=== PATIENT | female | born 1970 | race Two or more races ===

== ENCOUNTER 2024-11-12 11:18 | Emergency (ER) | payer OTHER ==
[~2024-11-12] VITALS: Ht 154.9 cm; Wt 90.0 kg
--- NOTE | 2024-11-12 11:31 | ECG ---
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
--- NOTE | 2024-11-12 11:44 | ED.PDOC ---
HPI Comments 54 y/o F, with no prior cardiac history presents to the ED for CC of chest pain. 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 Patient denies shortness of breath, cough, sore-throat, dizziness, or headache. No other symptoms or modifying factors present at this time. 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 Hx Family History Family History: Unknown Social History Smoker: Non-Smoker Alcohol: Denies ETOH Use Drugs: Denies Drug Use Lives In: Home Constitutional: denies: chills, diaphoresis, fatigue, fever, malaise, sweats, weakness, others EENTM: denies: blurred vision, double vision, ear bleeding, ear discharge, ear drainage, ear pain, ear ringing, eye pain, eye redness, hearing loss, mouth pain, mouth swelling, nasal discharge, nose bleeding, nose congestion, nose pain, photophobia, tearing, throat pain, throat swelling, voice changes, others Respiratory: denies: cough, hemoptysis, orthopnea, SOB at rest, shortness of breath, SOB with excertion, stridor, wheezing, others Cardiovascular: reports: chest pain; denies: dizzy spells, diaphoresis, Dyspnea on exertion, edema, irregular heart beat, left arm pain, lightheadedness, palpitations, PND, syncope, others Gastrointestinal: denies: abdomen distended, abdominal pain, blood streaked bowels, constipated, diarrhea, dysphagia, difficulty swallowing, hematemesis, melena, nausea, poor appetite, poor fluid intake, rectal bleeding, rectal pain, vomiting, others Genitourinary: denies: abnormal vagina bleeding, burning, dyspareunia, dysuria, flank pain, frequency, hematuria, incontinence, pain, , vagina discharge, urgency, others Neurological: denies: dizziness, fainting, headache, left sided numbness, left sided weakness, numbness, paresthesia, pre-existing deficit, right sided nu mbness, right sided weakness, seizure, speech problems, tingling, tremors, weakness, others Musculoskeletal: denies: back pain, gout, joint pain, joint swelling, muscle pain, muscle stiffness, neck pain, others Integumetry: denies: bruises, change in color, change in hair/nails, dryness, laceration, lesions, lumps, rash, wounds, others Allergic/Immunocompromised: denies: Difficulty Healing, Frequent Infections, Hives, Itching, others Hematologic/Lymphatic: denies: anemia, blood clots, easy bleeding, easy bruising, swollen glands, others Endocrine: denies: excessive hunger, excessive sweating, excessive thirst, excessive urination, flushing, intolerance to cold, intolerance to heat, unexplained weight gain, unexplained weight loss, others Psychiatric: denies: anxiety, bipolar disorder, depression, hopeless, panic disorder, schizophrenia, sleepless, suicidal, others All Other Systems: Reviewed and Negative Physical Exam General Appearance: Moderate Distress HEENT: Normal ENT Inspection, Pharynx Normal, TMs Normal Neck: Full Range of Motion, Non-Tender, Normal, Normal Inspection Respiratory: Chest Non-Tender, Lungs Clear, No Accessory Muscle Use, No Respiratory Distress, Normal Breath Sounds Cardiovascular: No Edema, No JVD, No Murmur, No Gallop, Normal Peripheral Pulses, Regular Rate/Rhythm Breast Exam: Deferred Gastrointestinal: No Organomegaly, Non Tender, No Pulsatile Mass, Normal Bowel Sounds, Soft Genitalia: Deferred Pelvic: Deferred Rectal: Deferred Extremities: No calf tenderness, Normal capillary refill, Normal inspection, Normal range of motion, Non-tender, No pedal edema Musculoskeletal : Apperance: Normal 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 Was a procedure done?: No CP Differential Dx Differential Diagnosis: A-fib, A-Flutter, Angina, Anxiety / Panic Attack, Atrial Dysrhythmia, Electrolyte Disorder Differential Diagnosis: HTN Essential, HTN Accelerated Differential Diagnosis: Angina, Chest Wall Pain, Costochondritis, Esophageal reflux/spasm, Gastritis, Pneumonia X-Ray, Labs, Meds, VS Vital Signs Date Time Temp Pulse Resp B/P (MAP) Pulse Ox O2 Delivery O2 Flow Rate FiO2 11/12/24 12:24 64 16 100 Room Air 11/12/24 12:24 97.9 64 18 127/85 (99) 100 97.9 11/12/24 11:44 70 11/12/24 11:31 98.0 64 18 128/71 (90) 98 98.0 11/12/24 11:30 70 Lab Test 11/12/24 12:49 11/12/24 11:46 Range/Units Troponin I High Sensitivity < 3 L < 3 L </=34 ng/L Current Medications Medications (Trade) Dose Ordered Sig/Humaira Route Start Time Stop Time Status Last Admin Aspirin 325 mg ONCE ONCE PO 11/12/24 12:00 11/12/24 12:01 DC 11/12/24 12:16 [place] [id number] Ph: [phone] DIAGNOSTIC IMAGING Diagnostic Imaging Report : [id number] Signed PATIENT: TAM OLIVERCCT: [id number] UNIT: [id number] : 1970 LOC: ER ROOM / BED: / AGE / SEX: 54 / F ADM STATUS: REG ER SERVICE 1133 ORDERING PHYSICIAN: HIMA ERICKSON MD PROCEDURE(s): CXRP - CHEST PORTABLE REASON: sob ORDER NUMBER(s): [id number], ACCESSION NUMBER(s): [id number] CHEST RADIOGRAPH Indication: sob Technique: Single frontal view of the chest was obtained Comparison: None FINDINGS: Lines and Tubes: None Lungs: No focal consolidation. Pleura: No effusion. No pneumothorax. Cardiomediastinal contours: Unremarkable Bones: No acute osseous abnormality. IMPRESSION: No acute cardiopulmonary disease. ATED BY: COMPA WISDOM MD DICTATED DATE/TIME: 11/12/241211 SIGNED BY: COMPA WISDOM MD SIGNED DATE/TIME: 11/12/24 121 CC: Patient alert. Complaining of chest pain. Pain mostly on inspiration. Vitals stable. Possible pleurisy. Possible pneumonitis. EKG reviewed does not show any acute changes. Was given aspirin. Explained to the patient. Continue monitoring. Time of 1ST Reevaluation: 11:55 Reevaluation 1ST: Unchanged Patient Education/Counseling: Diagnosis, Treatment Family Education/Counseling: No Family Present SEPSIS Sepsis Screen Date sepsis recognized/suspect: Nov 12, 2024 Time Sepsis recognized/suspect: 112 Recent Procedure: No On Antibiotic Therapy: No Respiratory Rate >20: No Heart Rate >90: No Temp<36 C (96.8 F) or >38.3 C: No SBP <90 or MAP <65 mmHG: No New Acute Mental Status Change: No Is the patient on CPAP, BIPAP,: No Physician Orders Chest Portable (11/12/24 11:33) Urinalysis (11/12/24 11:33) Vital Signs Date Time Temp Pulse Resp B/P (MAP) Pulse Ox O2 Delivery O2 Flow Rate FiO2 11/12/24 12:24 64 16 100 Room Air 11/12/24 12:24 97.9 64 18 127/85 (99) 100 97.9 11/12/24 11:44 70 11/12/24 11:31 98.0 64 18 128/71 (90) 98 98.0 11/12/24 11:30 70 Medications Medications Dose Ordered Sig/Humaira Route Start Time Stop Time Status Last Admin Dose Admin Aspirin 325 mg ONCE ONCE PO 11/12/24 12:00 11/12/24 12:01 DC 11/12/24 12:16 Departure 1 Departure Time of Disposition: 11:48 Impression: Primary Impression: Pneumonitis Disposition: 01 HOME / SELF CARE / HOMELESS Condition: Good e-Prescriptions Amoxicillin Trihydrate (Amoxicillin) 500 Mg Tab 1 TAB PO TID for 7 Days, #21 TAB Prov: HIMA ERICKSON MD 11/12/24 Discharged With: Self Critical Care Note Critical Care Time?: No Stability Stability form required: No Heart Score Heart Score: Heart Score Response (Comments) Value History Slightly Suspicious 0 EKG Normal 0 Age 45-64 1 Risk Factors 1 or 2 risk factors 1 Troponin Normal limit 0 Total 2 I personally scribed for HIMA ERICKSON MD ([email or web address]) on 11/12/24 at 11:44. Electronically submitted by Sonia Morel ([facility]). I personally scribed for HIMA ERICKSON MD ([email or web address]) on 11/12/24 at 12:54. Electronically submitted by Sonia Morel ([facility]). HIMA ERICKSON MD Nov 12, 2024 11:44
--- NOTE | 2024-11-12 12:15 | DVH ---
CHEST RADIOGRAPH Indication: sob Technique: Single frontal view of the chest was obtained Comparison: None FINDINGS: Lines and Tubes: None Lungs: No focal consolidation. Pleura: No effusion. No pneumothorax. Cardiomediastinal contours: Unremarkable Bones: No acute osseous abnormality. IMPRESSION: No acute cardiopulmonary disease.
[2024-11-12] MEDS ORDERED: AMOX500T3 PO (14:15)
[2024-11-12 14:26] VITALS: BP 150/85; PULSE 59; RESP 20; TEMP 98.2; O2SAT 97
== END 2024-11-12 14:31 | disposition home or self-care (01) ==
LOC: ER 11:18
DX: J98.4 Other disorders of lung (principal)
CPT/HCPCS: 36415; 71045; 84484; 93005